=== PATIENT | female | born 1930 ===

== ENCOUNTER → 2017-11-04 | Emergency (ER) | payer OTHER ==
[~2017-11-04] VITALS: Ht 160 cm; Wt 37.2 kg
[~2017-11-04] MED LIST: CIPRO500 MG; CIPRO500 MG PO; LEVAQUIN750 MG PO; ONCOVITE1 TAB PO; PYRIDIUM200 MG; TRAMADOL HCL50 MG; TRAMADOL HCL50 MG PO
== END | disposition home or self-care (01) ==
LOC: ER 09:52
DX: N39.0 Urinary tract infection, site not specified (principal); J11.1 Influenza due to unidentified influenza virus with other respiratory manifestations; R82.79 Other abnormal findings on microbiological examination of urine